=== PATIENT | male | born 1995 | race Caucasian/White ===

== ENCOUNTER 2017-10-06 18:20 | Emergency (ER) | payer MEDICAID, OTHER, SELFPAY ==
[~2017-10-06] VITALS: Ht 188 cm; Wt 71.7 kg
[2017-10-06] MEDS ORDERED: OMEP-110 PO (18:47)
[2017-10-06] MEDS ORDERED: INDO50CA5 PO (18:47)
[2017-10-06] MEDS ORDERED: COLC0.6T37 PO (18:47)
[2017-10-06] MEDS ORDERED: MAALOX/HYOSCYAMINE/LIDOCAINE 45 ML BTL PO ONE (19:00)
[2017-10-06] MEDS ORDERED: MAALOX/HYOSCYAMINE/LIDOCAINE 45 ML BTL ONE (19:05)
[2017-10-06 19:37] LABS: BASOPHILS % (AUTO) 1 % (0-1); EOSINOPHILS # (AUTO) 0.15 x10^3/uL (0-0.4); EOSINOPHILS % (AUTO) 1 % (1-7); LYMPHOCYTES # (AUTO) 2.57 x10^3/uL (1-3.4); LYMPHOCYTES % (AUTO) 19 % (22-44); MD NO; MEAN CORPUSCULAR HGB CONC 33.8 g/dL (33.2-36.2); MEAN CORPUSCULAR VOLUME 88.7 fL (81-97); MONOCYTES % (AUTO) 10 % (2-9); NEUTROPHILS # (AUTO) 9.28 x10^3/uL (1.8-6.8); NEUTROPHILS % (AUTO) 69 % (42-75); PLATELET COUNT 270 x10^3/uL (130-400); RED BLOOD COUNT 3.68 x10^6/uL (4.38-5.82); RED CELL DISTRIBUTION WIDTH 14.6 % (9.4-14.8)
[2017-10-06 19:49] LABS: ALANINE AMINOTRANSFERASE 21 U/L (12-78); ALBUMIN 2.7 g/dL (3.4-5.0); ANION GAP 6 mmol/L (5-15); CALCIUM 8.3 mg/dL (8.5-10.1); CHLORIDE 110 mmol/L (98-107); CREATININE 0.97 mg/dL (0.7-1.3)
[2017-10-06 19:52] LABS: ALKALINE PHOSPHATASE 113 U/L (45-117); BILIRUBIN,TOTAL 0.5 mg/dL (0.2-1.0); TOTAL PROTEIN 6.5 g/dL (6.4-8.2)
[2017-10-06 19:54] LABS: TROPONIN I < 0.015 ng/mL (0.000-0.045)
[2017-10-06 20:38] LABS: MICROSCOPIC INDICATED
[2017-10-06 20:39] LABS: CULTURE INDICATED? YES
[2017-10-06 21:08] VITALS: BP 135/81
== END 2017-10-06 21:15 | disposition home or self-care (01) ==
LOC: ED 19:50
DX: K29.00 Acute gastritis without bleeding (principal)
CPT/HCPCS: 36415; 74022; 76700; 80053; 81001; 83690; 84484; 85025; 87086; 93005; 99285

== ENCOUNTER 2017-10-29 17:31 | Emergency (ER) | payer OTHER ==
[~2017-10-29] VITALS: Ht 188 cm; Wt 69.6 kg
[~2017-10-29 17:31] MED LIST: COLC0.6T37 PO; INDO50CA5 PO; OMEP-110 PO
[2017-10-29] MEDS ORDERED: SODIUM CHLORIDE FLUSH 10ML SYR IVF ONE (18:30)
[2017-10-29 18:48] LABS: BASOPHILS # (AUTO) 0.03 x10^3/uL (0-0.1); BASOPHILS % (AUTO) 0 % (0-1); EOSINOPHILS # (AUTO) 0.18 x10^3/uL (0-0.4); EOSINOPHILS % (AUTO) 2 % (1-7); LYMPHOCYTES # (AUTO) 2.57 x10^3/uL (1-3.4); LYMPHOCYTES % (AUTO) 21 % (22-44); MD NO; MEAN CORPUSCULAR HGB CONC 33.5 g/dL (33.2-36.2); MEAN CORPUSCULAR VOLUME 89.7 fL (81-97); MEAN PLATELET VOLUME 11.4 fL (7.4-10.4); MONOCYTES # (AUTO) 0.99 x10^3/uL (0.2-0.8); MONOCYTES % (AUTO) 8 % (2-9); NEUTROPHILS # (AUTO) 8.46 x10^3/uL (1.8-6.8); NEUTROPHILS % (AUTO) 69 % (42-75); PLATELET COUNT 140 x10^3/uL (130-400); RED BLOOD COUNT 4.66 x10^6/uL (4.38-5.82); RED CELL DISTRIBUTION WIDTH 17.6 % (9.4-14.8)
[2017-10-29 18:53] LABS: HCT (SEDRATE) 41.8 % (39.2-51.8)
[2017-10-29 18:55] LABS: ALBUMIN 3.7 g/dL (3.4-5.0); ANION GAP 7 mmol/L (5-15); CALCIUM 8.6 mg/dL (8.5-10.1); CHLORIDE 105 mmol/L (98-107)
[2017-10-29 18:56] LABS: D-DIMER 0.51 ug/mlFEU (0.00-0.52); INTERNATIONAL NORMALIZED RATIO 1.02 (0.93-1.1); PROTHROMBIN TIME 10.5 Seconds (9.6-11.5)
[2017-10-29 19:00] LABS: ALANINE AMINOTRANSFERASE 21 U/L (12-78); ALKALINE PHOSPHATASE 77 U/L (45-117); BILIRUBIN,TOTAL 0.6 mg/dL (0.2-1.0); CREATININE 1.06 mg/dL (0.7-1.3); TOTAL PROTEIN 7.2 g/dL (6.4-8.2); TROPONIN I < 0.015 ng/mL (0.000-0.045)
[2017-10-29 19:55] VITALS: BP 132/77
== END 2017-10-29 19:57 | disposition home or self-care (01) ==
LOC: ED 19:50
DX: R07.89 Other chest pain (principal)
CPT/HCPCS: 36415; 71045; 80053; 83880; 84484; 85025; 85379; 85610; 85651; 85730; 93005; 99285

== ENCOUNTER 2019-01-13 19:30 | Emergency (ER) | payer OTHER ==
[~2019-01-13] VITALS: Ht 188 cm; Wt 76.2 kg
[~2019-01-13 19:30] MED LIST changes: +INDO50CA15 PO; -INDO50CA5 PO
[2019-01-13] MEDS ORDERED: ASPIRIN 81 MG TABLET CHEW PO ONE (20:00)
[2019-01-13] MEDS ORDERED: ASPIRIN 81 MG TABLET CHEW ONE (20:03)
[2019-01-13 20:04] LABS: BASOPHILS # (AUTO) 0.04 x10^3/uL (0-0.1); BASOPHILS % (AUTO) 0 % (0-1); EOSINOPHILS # (AUTO) 0.13 x10^3/uL (0-0.4); EOSINOPHILS % (AUTO) 1 % (1-7); LYMPHOCYTES # (AUTO) 4.17 x10^3/uL (1-3.4); LYMPHOCYTES % (AUTO) 29 % (22-44); MD NO; MEAN CORPUSCULAR HEMOGLOBIN 30.9 pg (27.5-34.5); MEAN CORPUSCULAR HGB CONC 33.1 g/dL (33.2-36.2); MEAN CORPUSCULAR VOLUME 93.5 fL (81-97); MEAN PLATELET VOLUME 10.4 fL (7.4-10.4); MONOCYTES # (AUTO) 0.93 x10^3/uL (0.2-0.8); MONOCYTES % (AUTO) 7 % (2-9); NEUTROPHILS # (AUTO) 8.94 x10^3/uL (1.8-6.8); NEUTROPHILS % (AUTO) 63 % (42-75); PLATELET COUNT 141 x10^3/uL (130-400); RED BLOOD COUNT 5.32 x10^6/uL (4.38-5.82); RED CELL DISTRIBUTION WIDTH 14.5 % (9.4-14.8)
--- NOTE | 2019-01-13 20:05 | NUR ---
PT MEDICATED PER MAR
--- NOTE | 2019-01-13 20:09 | NUR ---
PT PRESENTED WITH C/O "BEEN GETTING SOB AND CP FOR THE LAST DAY OR SO. LAYING DOWN I GET PRESSURE THERE." HX OF PERICARDITIS. MONITORS APPLIED, SIDERAILS UP X2, CALL LIGHT WITHIN REACH. AWAITING LAB AND XRAY RESULTS
[2019-01-13 20:10] LABS: ALANINE AMINOTRANSFERASE 13 U/L (12-78); ALBUMIN 3.9 g/dL (3.4-5.0); ANION GAP 6 mmol/L (5-15); CALCIUM 8.7 mg/dL (8.5-10.1); CHLORIDE 106 mmol/L (98-107); CREATININE 1.26 mg/dL (0.7-1.3)
[2019-01-13] MEDS ORDERED: ALBU0.63 NEB (20:11)
[2019-01-13 20:15] LABS: ALKALINE PHOSPHATASE 57 U/L (45-117); BILIRUBIN,TOTAL 0.2 mg/dL (0.2-1.0); TOTAL PROTEIN 7.1 g/dL (6.4-8.2); TROPONIN I < 0.015 ng/mL (0.000-0.045)
[2019-01-13 21:04] VITALS: BP 154/72
[2019-01-13] MEDS ORDERED: KETOROLAC 30 MG/1 ML ONE (21:24)
--- NOTE | 2019-01-13 21:28 | NUR ---
PT MEDICATED PER MAR
[2019-01-13] MEDS ORDERED: KETOROLAC 30 MG/1 ML IM ONE (21:30)
== END 2019-01-13 21:39 | disposition home or self-care (01) ==
LOC: ED 21:30
DX: R07.89 Other chest pain (principal); R06.02 Shortness of breath; R05 Cough; F17.210 Nicotine dependence, cigarettes, uncomplicated
CPT/HCPCS: 36415; 71046; 80053; 83880; 84484; 85025; 93005; 96372; 99284; J1885

== ENCOUNTER 2019-01-15 17:01 | Emergency (ER) | payer OTHER ==
[~2019-01-15] VITALS: Ht 188 cm; Wt 77.1 kg
[~2019-01-15 17:01] MED LIST changes: +ALBU0.63 NEB
[2019-01-15 17:03] VITALS: BP 125/60
--- NOTE | 2019-01-15 17:23 | NUR ---
PT HERE FOR RECHECK FOR PERICARDIAL SAC PER MD REQUEST. PT REPORTS THAT HE DOES NOT FEEL BETTER. PT REPORTS THAT HE IS STILL SOB BUT HAS NO NEW COMPLAINTS.
--- NOTE | 2019-01-15 17:39 | NUR ---
[facility]: CARDS PAGED
--- NOTE | 2019-01-15 18:17 | NUR ---
Patient/Caregiver given discharge instructions and they have confirmed that they understand the instructions. Patient ambulatory with steady gait.
== END 2019-01-15 18:19 | disposition home or self-care (01) ==
LOC: ED 17:45
DX: R07.2 Precordial pain (principal)
CPT/HCPCS: 93005; 99283

== ENCOUNTER 2019-03-20 07:52 | Emergency (ER) | payer OTHER ==
[~2019-03-20] VITALS: Ht 188 cm; Wt 83.8 kg
[2019-03-20 07:53] VITALS: BP 145/82
[2019-03-20] MEDS ORDERED: INDO50CA15 PO (08:10)
[2019-03-20] MEDS ORDERED: OMEP20TA62 PO (08:10)
--- NOTE | 2019-03-20 08:21 | NUR ---
PT TO RAD
--- NOTE | 2019-03-20 08:58 | NUR ---
pt upright on gurney awake & calm, responds approp to staff,, NAD at rest no resp distress noted, comfort measures provided, call light within reach.
--- NOTE | 2019-03-20 10:00 | NUR ---
Patient given discharge instructions and they have confirmed that they understand the instructions. Patient ambulatory with steady gait.
== END 2019-03-20 10:02 ==
LOC: ED 09:40
DX: R07.89 Other chest pain (principal); R06.02 Shortness of breath; R11.0 Nausea
CPT/HCPCS: 71046; 93005; 99283

== ENCOUNTER 2019-05-14 08:36 | Outpatient (CLI) | payer OTHER ==
[~2019-05-14 08:36] MED LIST changes: +OMEP20TA62 PO
== END 2019-05-14 23:59 | disposition home or self-care (01) ==
LOC: CFH 08:36
PROVIDERS: ATTEND Internal Medicine Cardiovascular Disease
DX: R07.89 Other chest pain (principal)
CPT/HCPCS: 93306